=== PATIENT | male | born 1960 | race Two or more races ===

== ENCOUNTER 2025-05-29 06:50 | Day surgery (SDC) | payer MEDICARE, SELFPAY ==
[2025-05-28 12:37] VITALS: BMI 30.9
[2025-05-29] VITALS (10 sets, daily range): BP systolic 121–157; BP diastolic 84–103; PULSE 73–88; RESP 12–19; TEMP 36.2–36.8; O2SAT 95–99; BMI 31.6
[2025-05-29] MEDS: SODIUM CHLORIDE 0.9% 500 ML 500 ML 125 ML IV (08:01)
[2025-05-29] MEDS: MIDAZOLAM INJ 1 MG/ML VIAL 2 ML (ASD USE ONLY) 2 MG IVP (08:01)
[2025-05-29] MEDS: fentaNYL CIT INJ 50 mCg/ML AMP 2ML (ASD USE ONLY) IVP (08:01)
[2025-05-29] MEDS: SIMETHICONE 40 MG/0.6 ML ORAL SYRINGE PO (08:08)
== END 2025-05-29 09:14 | disposition home or self-care (01) ==
PROVIDERS: PCP Nurse Practitioner Family; Referring Provider Surgery; Visit Provider Surgery
PROC: 0DBE8ZX Excision of Large Intestine, Via Natural or Artificial Opening Endoscopic, Diagnostic (ICD-10-PCS; CPT 45380; principal; 2025-05-29 08:00)
DX: Z12.11 Encounter for screening for malignant neoplasm of colon (principal); D12.3 Benign neoplasm of transverse colon; D12.4 Benign neoplasm of descending colon; K64.1 Second degree hemorrhoids; K64.4 Residual hemorrhoidal skin tags; K57.30 Diverticulosis of large intestine without perforation or abscess without bleeding; I25.10 Atherosclerotic heart disease of native coronary artery without angina pectoris; E78.00 Pure hypercholesterolemia, unspecified; I10 Essential (primary) hypertension; Z79.899 Other long term (current) drug therapy; Z79.82 Long term (current) use of aspirin
CPT/HCPCS: 45385; A4649; J1200; J2250; J3010; J7999; A9270